=== PATIENT | female | born 1960 | race Two or more races ===

== ENCOUNTER 2024-06-01 14:03 | Inpatient (IN) | payer MEDICAID ==
[~2024-06-01] VITALS: Ht 165.1 cm; Wt 75.0 kg
--- NOTE | 2024-06-01 14:14 | ED.PDOC ---
General HPI Comments 63 year old female presents to the ED with chief complaint of flank pain. Patient reports she visited today due to experiencing left sided flank pain with associated mild fever, nausea, and dysuria since yesterday. Patient relays that she was sent to the ED for further evaluation. Patient states she currently has stage 3 chronic kidney failure. Patient denies any vomiting, diarrhea, abdominal pain, hematuria, chills, or dizziness. Time Seen by MD: 14:11 Reviewed notes: Nurses Notes, Medications, Allergies Allergies: Coded Allergies: Pineapple (Verified Allergy, Unknown, 06/01/24) Information Source: Patient Mode of Arrival: Ambulatory Severity: Moderate Inability to void: None Timing: Days Duration: Since onset Prehospital treatment: None Onset: Spontaneous Symptoms: Dysuria Location: (L)Flank Modifying factors: None associated signs and symptoms: Fever, Flank Pain, Dysuria Past Medical History PAST MEDICAL HISTORY: CKF (Stage 3), DM Surgical History: Hysterectomy PORCELAIN MIXER History: Denies all PORCELAIN MIXER Hx Family History Family History: Reviewed,noncontributory to illness Social History Smoker: Non-Smoker Alcohol: Denies ETOH Use Drugs: Denies Drug Use Lives In: Home Constitutional: reports: fever; denies: chills, diaphoresis, fatigue, malaise, sweats, weakness, others EENTM: denies: blurred vision, double vision, ear bleeding, ear discharge, ear drainage, ear pain, ear ringing, eye pain, eye redness, hearing loss, mouth pain, mouth swelling, nasal discharge, nose bleeding, nose congestion, nose pain, photophobia, tearing, throat pain, throat swelling, voice changes, others Respiratory: denies: cough, hemoptysis, orthopnea, SOB at rest, shortness of breath, SOB with excertion, stridor, wheezing, others Cardiovascular: denies: chest pain, dizzy spells, diaphoresis, Dyspnea on exertion, edema, irregular heart beat, left arm pain, lightheadedness, palpitations, PND, syncope, others Gastrointestinal: reports: nausea; denies: abdomen distended, abdominal pain, blood streaked bowels, constipated, diarrhea, dysphagia, difficulty swallowing, hematemesis, melena, poor appetite, poor fluid intake, rectal bleeding, rectal pain, vomiting, others Genitourinary: reports: dysuria, flank pain (Left); denies: abnormal vagina bleeding, burning, dyspareunia, frequency, hematuria, incontinence, pain, , vagina discharge, urgency, others Neurological: denies: dizziness, fainting, headache, left sided numbness, left sided weakness, numbness, paresthesia, pre-existing deficit, right sided numbness, right sided weakness, seizure, speech problems, tingling, tremors, weakness, others Musculoskeletal: denies: back pain, gout, joint pain, joint swelling, muscle pain, muscle stiffness, neck pain, others Integumetry: denies: bruises, change in color, change in hair/nails, dryness, laceration, lesions, lumps, rash, wounds, others Allergic/Immunocompromised: denies: Difficulty Healing, Frequent Infections, Hives, Itching, others Hematologic/Lymphatic: denies: anemia, blood clots, easy bleeding, easy bruising, swollen glands, others Endocrine: denies: excessive hunger, excessive sweating, excessive thirst, excessive urination, flushing, intolerance to cold, intolerance to heat, unexplained weight gain, unexplained weight loss, others Psychiatric: denies: anxiety, bipolar disorder, depression, hopeless, panic disorder, schizophrenia, sleepless, suicidal, others All Other Systems: Reviewed and Negative Physical Exam General Appearance: Moderate Distress, Normal HEENT: Normal ENT Inspection, PERRL/EOMI Neck: Full Range of Motion, Non-Tender, Normal, Normal Inspection Respiratory: Chest Non-Tender, Lungs Clear, No Accessory Muscle Use, No Respiratory Distress, Normal Breath Sounds Cardiovascular: No Edema, No JVD, No Murmur, No Gallop, Normal Peripheral Pulses, Regular Rate/Rhythm Breast Exam: Deferred Gastrointestinal: No Organomegaly, Non Tender, No Pulsatile Mass, Normal Bowel Sounds, Soft Genitalia: Deferred Pelvic: Deferred Rectal: Deferred Extremities: No calf tenderness, Normal capillary refill, Normal inspection, Normal range of motion, Non-tender, No pedal edema Musculoskeletal : Apperance: Normal Neurologic: Alert, crm consultant II-XII nml as Tested, No Motor Deficits, Normal Affect, Normal Mood, No Sensory Deficits Cerebellar Function: NOT DONE Reflexes: NOT DONE Skin: Dry, Normal Color, Warm Peripheral Pulses: 3+ Radial (R), 3+ Radial (L) Lymphatic: No Adenopathy Was a procedure done? Was a procedure done?: No Differential Diagnosis Kidney stone (Female): Musculoskeletal pain, Urinary obstruction, Urolithiasis X-Ray, Labs, Meds, VS Vital Signs Date Time Temp Pulse Resp B/P (MAP) Pulse Ox O2 Delivery O2 Flow Rate FiO2 06/01/24 15:13 93 18 158/77 (104) 98 06/01/24 15:13 93 18 98 Room Air 06/01/24 14:16 98.3 115 16 163/115 (131) 99 Lab Test 06/01/24 15:04 06/01/24 14:40 Range/Units White Blood Count 6.2 4.4-10.8 10^3/uL Red Blood Count 4.47 4.0-5.20 10^6/uL Hemoglobin 12.9 12.2-16.2 g/dL Hematocrit 38.3 36.0-46.0 % Mean Corpuscular Volume 85.9 80.0-100.0 fL Mean Corpuscular Hemoglobin 29.0 28.0-32.0 pg Mean Corpuscular Hemoglobin Concent 33.8 32.0-36.0 g/dL Red Cell Distribution Width 14.5 H 11.8-14.3 % Platelet Count 353 140-450 10^3/uL Mean Platelet Volume 8.0 6.9-10.8 fL Neutrophils (%) (Auto) 56.1 37.0-80.0 % Lymphocytes (%) (Auto) 33.8 10.0-50.0 % Monocytes (%) (Auto) 7.2 0.0-12.0 % Eosinophils (%) (Auto) 2.0 0.0-7.0 % Basophils (%) (Auto) 0.9 0.0-2.0 % Neutrophils # (Auto) 3.5 1.6-8.6 10 ^3/uL Lymphocytes # (Auto) 2.1 0.4-5.4 10 ^3/uL Monocytes # (Auto) 0.4 0-1.3 10 ^3/uL Eosinophils # (Auto) 0.1 0-0.8 10 ^3/uL Basophils # (Auto) 0.1 0-0.2 10 ^3/uL Nucleated Red Blood Cells 0.0 % Sodium Level 140 136-145 mmol/L Potassium Level 3.9 3.5-5.1 mmol/L Chloride Level 106 98-107 mmol/L Carbon Dioxide Level 28 20-31 mmol/L Anion Gap 6 5-15 Blood Urea Nitrogen 17 9-23 mg/dL Creatinine 1.09 H 0.550-1.02 mg/dL Glomerular Filtration Rate Calc 57 >90 mL/min BUN/Creatinine Ratio 15.6 10.0-20.0 Serum Glucose 135 H 74-106 mg/dL Calcium Level 9.9 8.7-10.4 mg/dL Urine Color Light-yellow Yellow Urine Clarity Clear Clear Urine pH 6.5 5.0-9.0 Urine Specific [place] 1.011 1.001-1.035 Urine Protein Negative Negative Urine Ketones Negative Negative Urine Blood Negative Negative /uL Urine Nitrite Negative Negative Urine Bilirubin Negative Negative Urine Urobilinogen Normal Negative mg/dL Urine Leukocyte Esterase Negative Negative /uL Urine RBC <1 0 - 4 /hpf Urine WBC <1 0 - 5 /hpf Urine Squamous Epithelial Cells Few <5 /hpf Urine Bacteria None seen None Seen /hpf Urine Glucose Normal Normal mg/dL Current Medications Medications (Trade) Dose Ordered Sig/Candis Route Start Time Stop Time Status Last Admin Sodium Chloride 1,000 ml @ 1,000 mls/hr Q1H ONCE IVB 06/01/24 14:45 06/01/24 15:44 DC 06/01/24 15:39 Ceftriaxone Sodium 50 ml @ 100 mls/hr ONCE ONCE IV 06/01/24 14:45 06/01/24 15:14 DC 06/01/24 15:39 Ondansetron HCl (Zofran) 4 mg ONCE ONCE IV 06/01/24 16:00 06/01/24 16:01 DC 06/01/24 16:26 Patient alert. Complaining of flank pain. Blood pressure elevated. Tachycardia. Had fever prior to going to the urgent care. Came from urgent care. Possible pyelonephritis. Establish intravenous access. Was given fluids. Was given Rocephin. Reviewed her history. Explained to the patient. Continue cardiac monitoring. UA shows small amount of bacteria. Unknown whether this urinary tract infection. Continues to have nausea. CT scan of the abdomen reviewed shows hydronephrosis. CT Abd/Pel: Findings: Evaluation of solid organs is limited due to lack of intravenous contrast use. Lung Bases: No acute or significant lung base finding. Normal heart size. No pleural or pericardial effusion. Liver: The liver is normal in size. No focal lesions. Gallbladder and biliary Tree: Surgically absent Spleen: Unremarkable Pancreas: The pancreas is grossly normal in appearance. Adrenal Glands: Unremarkable Kidneys: Mild bilateral hydronephrosis. No nephrolithiasis. No obstructing ureteral calculus. Bladder: Grossly unremarkable for degree of distention. Bowel: The stomach is grossly normal in appearance. Small bowel and colon are normal in caliber and distribution. Normal appendix is visualized in the right lower quadrant without findings of appendicitis. Ascites: Absent Lymphadenopathy: No mesenteric, retroperitoneal or periportal lymphadenopathy. Abdominal wall and Mesentery: Unremarkable. Vasculature: The visualized abdominal aorta is normal in size and caliber. Evaluation of abdominal and pelvic vessels is limited due to lack of intravenous contrast. Pelvic Organs: The uterus is surgically absent. Musculoskeletal: No aggressive focal bony lesions, acute fractures or dislocation. IMPRESSION: 1. Mild bilateral hydronephrosis. No obstructing calculus identified. Finding is nonspecific. Consider further evaluation with Lasix renal scan. Images Reviewed?: Images reviewed and evaluated by me Time of 1ST Reevaluation: 15:11 Reevaluation 1ST: Unchanged Patient Education/Counseling: Diagnosis, Treatment Family Education/Counseling: No Family Present Departure 1 Departure Time of Disposition: 14:41 Impression: Primary Impression: Hypertensive urgency Additional Impressions: Intractable nausea Hydronephrosis Qualified Codes: N13.30 - Unspecified hydronephrosis Disposition: ADMITTED INPATIENT Admit to: Med Surg Condition: Guarded Critical Care Note Critical Care Time?: Yes (45 min-critical care time only) Stability Stability form required: No Heart Score Heart Score: Heart Score Response (Comments) Value History N/A 0 EKG N/A 0 Age N/A 0 Risk Factors N/A 0 Troponin N/A 0 Total 0 I personally scribed for ELEANOR KELLY MD ([email or web address]) on 06/01/24 at 14:14. Electronically submitted by Chato Parks ([email or web address]). I personally scribed for ELEANOR KELLY MD ([email or web address]) on 06/01/24 at 17:23. Electronically submitted by Chato Parks ([email or web address]). ELEANOR KELLY MD Jun 01, 2024 14:14
[2024-06-01 14:42] LABS: Urine Bacteria None Seen /hpf (None Seen)
[2024-06-01 14:53] LABS: Urine Blood Negative /uL (Negative); Urine Clarity Clear (Clear); Urine Color Light-Yellow (Yellow); Urine Protein, UAD Negative (Negative); Urine Specific Gravity 1.011 (1.001-1.035); Urine Urobilinogen Normal (Negative); Urine WBC <1 /hpf (0 - 5); Urine pH 6.5 (5.0-9.0)
[2024-06-01 15:19] LABS: Basophils # (auto) 0.1 10 ^3/uL (0-0.2); Basophils % (auto) 0.9 % (0.0-2.0); Eosinophils # (auto) 0.1 10 ^3/uL (0-0.8); Hematocrit 38.3 % (36.0-46.0); Hemoglobin 12.9 g/dL (12.2-16.2); Lymphocytes # (auto) 2.1 10 ^3/uL (0.4-5.4); Lymphocytes % (auto) 33.8 % (10.0-50.0); Mean Corpuscular Hgb Conc. 33.8 g/dL (32.0-36.0); Mean Corpuscular Volume 85.9 fL (80.0-100.0); Monocytes # (auto) 0.4 10 ^3/uL (0-1.3); Monocytes % (auto) 7.2 % (0.0-12.0); Neutrophils # (auto) 3.5 10 ^3/uL (1.6-8.6); Neutrophils % (auto) 56.1 % (37.0-80.0); Platelet Count (auto) 353 10^3/uL (140-450); Red Blood Cells 4.47 10^6/uL (4.0-5.20); Red Cell Distribution Width 14.5 % (11.8-14.3); White Blood Cell 6.2 10^3/uL (4.4-10.8)
[2024-06-01 15:28] LABS: Chloride 106 mmol/L (98-107); Potassium 3.9 mmol/L (3.5-5.1); Sodium 140 mmol/L (136-145)
[2024-06-01 15:29] LABS: Anion Gap 6 (5-15); Calcium 9.9 mg/dL (8.7-10.4); Carbon Dioxide 28 mmol/L (20-31)
[2024-06-01 15:34] LABS: BUN/Creatinine Ratio 15.6 (10.0-20.0); Blood Urea Nitrogen 17 mg/dL (9-23); Glucose 135 mg/dL (74-106)
[2024-06-01] MEDS: cefTRIAXone 1GM/50ML D5W 50 ML IV ONE (15:39)
[2024-06-01] MEDS: SODIUM CHLORIDE 0.9% 1,000 ML IVB ONE (15:39)
[2024-06-01] MEDS: ONDANSETRON HCL 4 MG/2 ML VIAL IV ONE (16:26)
--- NOTE | 2024-06-01 16:51 | DVH ---
Exam: CT CT AB PEL WO CON-NO ORAL OR IV History: hydro Comparison Study: None Technique: Multidetector spiral CT of the abdomen and pelvis was performed from lung bases to pubic symphysis. Imaging was performed without IV contrast. Axial, coronal and sagittal multiplanar reform ats were obtained from the axial data set by the technologist. Radiation dose : Abdomen/Pelvis: CTDIvol 14 mGy, DLP 619.13 mGy*cm. Findings: Evaluation of solid organs is limited due to lack of intravenous contrast use. Lung Bases: No acute or significant lung base finding. Normal heart size. No pleural or pericardial effusion. Liver: The liver is normal in size. No focal lesions. Gallbladder and biliary Tree: Surgically absent Spleen: Unremarkable Pancreas: The pancreas is grossly normal in appearance. Adrenal Glands: Unremarkable Kidneys: Mild bilateral hydronephrosis. No nephrolithiasis. No obstructing ureteral calculus. Bladder: Grossly unremarkable for degree of distention. Bowel: The stomach is grossly normal in appearance. Small bowel and colon are normal in caliber and d istribution. Normal appendix is visualized in the right lower quadrant without findings of appendici tis. Ascites: Absent Lymphadenopathy: No mesenteric, retroperitoneal or periportal lymphadenopathy. Abdominal wall and Mesentery: Unremarkable. Vasculature: The visualized abdominal aorta is normal in size and caliber. Evaluation of abdominal a nd pelvic vessels is limited due to lack of intravenous contrast. Pelvic Organs: The uterus is surgically absent. Musculoskeletal: No aggressive focal bony lesions, acute fractures or dislocation. IMPRESSION: 1. Mild bilateral hydronephrosis. No obstructing calculus identified. Finding is nonspecific. Consi leah further evaluation with Lasix renal scan. Radiation optimization: All CT scans at this facility use at least one of these dose optimization xochilt hniques: Automated exposure control mA and/or kV adjustment per patient size (includes targeted exams where dose is matched to clinical indication) or iterative reconstruction. HS:Y
[2024-06-01] MEDS ORDERED: NITROGLYCERIN 0.4 MG SL TAB SL PRN (20:15)
[2024-06-01] MEDS ORDERED: MORPHINE SULFATE INJ 2 MG/ml SYRG IV PRN (20:15)
--- NOTE | 2024-06-01 21:29 | DVHHPRES ---
History of Present Illness Resident Creating Document: EDMUNDO WALKER RESIDENT History of Present Illness This is a 63-year-old female with past medical history of hypertension, hyperlipidemia, hypothyroidism, glaucoma, type 2 diabetes mellitus, stage 3 CKD ,recurrent UTI presented to the ED with a chief complaint of left flank pain and suprapubic pain for 1 day prior to this admission. According to the patient the left flank pain started yesterday was colicky in nature, 8/10 radiated to left back and also in the groin and associated with low-grade fever, nausea and dysuria with no aggravating and relieving factors. She went to the urgent care with these symptoms and they referred the patient to the ED for further evaluation and management of left flank pain. She had history of repeated UTI and last UTI was 2 months ago and following with Dr. June for chronic kidney disease. She has an upcoming appointment with Dr. Diaz urologist in June 18, 2024 for recurrent UTI. She denies chest pain, shortness of breath, dizziness, diaphoresis, vomiting, sick contact, recent traveling or any change in bowel movement. Past Medical History Hypertension, hyperlipidemia, hypothyroidism, type 2 diabetes mellitus, stage 3 CKD , recurrent UTI Past Surgical History Hysterectomy, right elbow surgery and carpal tunnel surgery of the right hand Family History Family history significant for glaucoma Smoke: No ALCOHOL: none Drugs: None Lives: with Family Review of Systems Constitutional: No: Fever, Chills, Sweats, Weakness, Malaise, Other Eyes: No: Pain, Vision change, Conjunctivae inflammation, Eyelid inflammation, Other, Redness ENT: No: Ear pain, Ear discharge, Nose pain, Nose discharge, Nose congestion, Mouth pain, Mouth swelling, Throat pain, Throat swelling, Other Respiratory: No: Cough, Dry, Shortness of breath, SOB with excertion, Wheezing, Hemoptysis, Pleuritic Pain, Sputum, Wheezing, Other Cardiovascular: No: Chest Pain, Palpitations, Orthopnea, Paroxysmal Noc. Dyspnea, Edema, Lt Headedness, Other Gastrointestinal: Nausea, Abdominal Pain; No: Vomiting, Diarrhea, Constipation, Melena, Hematochezia, Other Genitourinary: No Dysuria, No Frequency, No Incontinence, No Hematuria, No Retention, No Other Musculoskeletal: No: other, neck pain, shoulder pain, arm pain, back pain, hand pain, leg pain, foot pain Skin: No: Rash, Lesions, Jaundice, Bruising, Other Neurological: No: Weakness, Numbness, Incoordination, Change in speech, Confusion, Seizures, Other Allergies: Coded Allergies: Pineapple (Verified Allergy, Unknown, 06/01/24) Medications Current Medications Medications Dose Ordered Sig/Candis Route Start Time Stop Time Status Last Admin Dose Admin Sodium Chloride 10 ml Q8HR IV 06/01/24 22:00 Acetaminophen/ Hydrocodone Bitart 1 tab Q4HP PRN PO 06/01/24 20:15 Ondansetron HCl 4 mg Q4HP PRN IV 06/01/24 20:15 Nitroglycerin 0.4 mg Q5MINP PRN SL 06/01/24 20:15 Morphine Sulfate 2 mg Q30M PRN IV 06/01/24 20:15 Exam Vital Signs Vital Signs Date Time Temp Pulse Resp B/P (MAP) Pulse Ox O2 Delivery O2 Flow Rate FiO2 06/01/24 21:24 97.5 92 20 154/66 (95) 97 97.5 06/01/24 15:13 Room Air Exam Physical examination: General Appearance: Alert, Oriented X3, Cooperative, No acute distress HEENT: Atraumatic, PERRLA, EOMI, Mucous membrane moist/pink Respiratory: Clear to auscultation, Normal air movement Cardiovascular: Regular rate, Normal S1, Normal S2, No murmurs, no chest wall tenderness Abdominal: Normal bowel sounds, Soft, tenderness in the suprapubic region, CVA tenderness absent, No hepatospenomegaly, No masses Extremities: No clubbing, No cyanosis, No edema, Normal pulses, No tenderness/swelling Skin: No rashes, No breakdown, No significant lesion Neuro: Normal gait, Normal speech, Strength at 5/5 X4 ext, Normal tone, Sensation intact, grossly intact cranial nerves. Psych/Mental Status: Mental status NL, Mood NL Labs/Xrays Labs Test 06/01/24 15:04 06/01/24 14:40 Range/Units White Blood Count 6.2 4.4-10.8 10^3/uL Red Blood Count 4.47 4.0-5.20 10^6/uL Hemoglobin 12.9 12.2-16.2 g/dL Hematocrit 38.3 36.0-46.0 % Mean Corpuscular Volume 85.9 80.0-100.0 fL Mean Corpuscular Hemoglobin 29.0 28.0-32.0 pg Mean Corpuscular Hemoglobin Concent 33.8 32.0-36.0 g/dL Red Cell Distribution Width 14.5 H 11.8-14.3 % Platelet Count 353 140-450 10^3/uL Mean Platelet Volume 8.0 6.9-10.8 fL Neutrophils (%) (Auto) 56.1 37.0-80.0 % Lymphocytes (%) (Auto) 33.8 10.0-50.0 % Monocytes (%) (Auto) 7.2 0.0-12.0 % Eosinophils (%) (Auto) 2.0 0.0-7.0 % Basophils (%) (Auto) 0.9 0.0-2.0 % Neutrophils # (Auto) 3.5 1.6-8.6 10 ^3/uL Lymphocytes # (Auto) 2.1 0.4-5.4 10 ^3/uL Monocytes # (Auto) 0.4 0-1.3 10 ^3/uL Eosinophils # (Auto) 0.1 0-0.8 10 ^3/uL Basophils # (Auto) 0.1 0-0.2 10 ^3/uL Nucleated Red Blood Cells 0.0 % Sodium Level 140 136-145 mmol/L Potassium Level 3.9 3.5-5.1 mmol/L Chloride Level 106 98-107 mmol/L Carbon Dioxide Level 28 20-31 mmol/L Anion Gap 6 5-15 Blood Urea Nitrogen 17 9-23 mg/dL Creatinine 1.09 H 0.550-1.02 mg/dL Glomerular Filtration Rate Calc 57 >90 mL/min BUN/Creatinine Ratio 15.6 10.0-20.0 Serum Glucose 135 H 74-106 mg/dL Calcium Level 9.9 8.7-10.4 mg/dL Urine Color Light-yellow Yellow Urine Clarity Clear Clear Urine pH 6.5 5.0-9.0 Urine Specific [place] 1.011 1.001-1.035 Urine Protein Negative Negative Urine Ketones Negative Negative Urine Blood Negative Negative /uL Urine Nitrite Negative Negative Urine Bilirubin Negative Negative Urine Urobilinogen Normal Negative mg/dL Urine Leukocyte Esterase Negative Negative /uL Urine RBC <1 0 - 4 /hpf Urine WBC <1 0 - 5 /hpf Urine Squamous Epithelial Cells Few <5 /hpf Urine Bacteria None seen None Seen /hpf Urine Glucose Normal Normal mg/dL Assessment/Plan Assessment/Plan Assessment and plan: # Left flank pain, rule out renal stone - CT abdomen pelvis revealed mild bilateral hydronephrosis without any obstructing calculus and recommended renal Lasix scan. - IV morphine 2 mg q.4 p.r.n. - IV ondansetron 4 mg q.4 p.r.n. - Consulted Urology. # Recurrent UTI - UA is not consistent with a UTI - Ordered urine bacterial culture # Stage 3 CKD - Strict I&O - Avoid nephrotoxic medication - Consulted Nephrology # Hypertensive heart disease - Losartan 25 mg p.o. daily - IV labetalol 5 mg q.2h p.r.n. # Hypothyroidism - Levothyroxine 137 mcg p.o. daily # Type 2 diabetes mellitus, HbA1C 6.9 - Mild sliding scale of insulin Goal of care discussed with the patient for more than 20 minutes full code Plan of treatment discussed with Dr. Pisano Plan discussed with: Patient, Other My Orders Orders - EDMUNDO WALKER RESIDENT Procedure Category Date Status Time Admit ADMIT 06/01/24 Transmitted 20:15 Code Status CODE 06/01/24 Transmitted 20:15 Sodium Chloride Lock PHA 06/01/24 In Process (Saline Lock Ns) 22:00 Hydrocodone-Acet PHA 06/01/24 In Process 5/325mg Tab ([place] 20:15 Ondansetron Hcl PHA 06/01/24 In Process (Zofran) 20:15 Complete Blood Count LAB 06/02/24 Verified 04:00 Comprehensive LAB 06/02/24 Verified Metabolic Panel 04:00 Nitroglycerin PHA 06/01/24 In Process Sublingual (Ntrostat 20:15 Morphine Sulfate PHA 06/01/24 In Process Injection 20:15 Oxygen By Nasal RT 06/01/24 Transmitted Cannula 20:15 Stat Ekg For Chest KEITH 06/01/24 In Process Pain 20:15 Notify Of Changes KEITH 06/01/24 In Process From Base 20:15 Economics Teacher For KEITH 06/01/24 In Process 24 Hours 20:15 Emergency Dysrhythmia KEITH 06/01/24 In Process Protocol 20:15 Rhythm Strips Once KEITH 06/01/24 In Process Every Shift 20:15 Consistent DIET 06/02/24 Transmitted Carb(Ccho)Diabetes Breakfast Date of Service: Jun 01, 2024 Billing Provider: MAKI PISANO MD Common Visit Codes: 90157-RYRSAVB INP/OBS CARE (HIGH) Secondary Visit Codes: 11755-[id number] CARE PLAN 30 MINUTES EDMUNDO WALKER RESIDENT Jun 01, 2024 21:29 MAKI PISANO MD Jun 02, 2024 12:53
[2024-06-01] MEDS: SODIUM CHLOR 0.9% PF (SALINE LOCK) 10ML VIAL/SYR IV SCH (21:58)
[2024-06-01] MEDS: SODIUM CHLORIDE 0.9% 1,000 ML IV ONE (22:22)
[2024-06-01] MEDS: ONDANSETRON HCL 4 MG/2 ML VIAL IV PRN (22:31)
[2024-06-01] MEDS: HYDROcodone-ACET 5/325MG TAB PO PRN (22:33)
[2024-06-02] MEDS ORDERED: DEXTROSE (50%) 50ML SYRG IV PRN
[2024-06-02] MEDS ORDERED: LABETALOL HCL 20 MG/4 ML VL IV PRN (02:00)
[2024-06-02 04:58] VITALS: BP 148/47; PULSE 76; RESP 18; TEMP 97.9; O2SAT 94
[2024-06-02 05:00] VITALS: BP 155/70; PULSE 71; RESP 18; TEMP 98.7; O2SAT 99
[2024-06-02] MEDS: LEVOTHYROXINE SODIUM 25 MCG TAB PO SCH (05:56)
[2024-06-02] MEDS: InsuLIN REG 1unit/0.01ml Soln (100units/ml) SC SCH (06:31)
[2024-06-02] MEDS: ACCU-CHEK COMFORT CURVE STRIP VI SCH (06:31)
[2024-06-02 07:03] LABS: Basophils # (auto) 0.1 10 ^3/uL (0-0.2); Basophils % (auto) 0.9 % (0.0-2.0); Eosinophils # (auto) 0.2 10 ^3/uL (0-0.8); Eosinophils % (auto) 3.1 % (0.0-7.0); Hematocrit 36.1 % (36.0-46.0); Hemoglobin 11.8 g/dL (12.2-16.2); Lymphocytes # (auto) 2.4 10 ^3/uL (0.4-5.4); Lymphocytes % (auto) 34.3 % (10.0-50.0); Mean Corpuscular Hemoglobin 28.8 pg (28.0-32.0); Mean Corpuscular Hgb Conc. 32.8 g/dL (32.0-36.0); Mean Corpuscular Volume 87.9 fL (80.0-100.0); Monocytes # (auto) 0.4 10 ^3/uL (0-1.3); Monocytes % (auto) 6.4 % (0.0-12.0); Neutrophils # (auto) 3.8 10 ^3/uL (1.6-8.6); Neutrophils % (auto) 55.3 % (37.0-80.0); Platelet Count (auto) 315 10^3/uL (140-450); Red Cell Distribution Width 14.5 % (11.8-14.3); White Blood Cell 6.9 10^3/uL (4.4-10.8)
[2024-06-02] MEDS ORDERED: LEVO137T3 PO (07:04)
[2024-06-02] MEDS ORDERED: CETI10TA2 PO (07:04)
[2024-06-02] MEDS ORDERED: DORZ2SOL18 EACHEYE (07:04)
[2024-06-02] MEDS ORDERED: PREG75CA PO (07:04)
[2024-06-02] MEDS ORDERED: HYDR-3682 PO (07:04)
[2024-06-02] MEDS ORDERED: LATA0.008 OP (07:04)
[2024-06-02] MEDS ORDERED: CHOL500033 PO (07:04)
[2024-06-02] MEDS ORDERED: LIFI5DRO2 OP (07:04)
[2024-06-02] MEDS ORDERED: LOSA-533 PO (07:04)
[2024-06-02] MEDS ORDERED: FENO145T27 OR (07:04)
[2024-06-02] MEDS ORDERED: ATOR20TA50 PO (07:04)
[2024-06-02 07:15] LABS: Alanine Aminotransferase 17 U/L (7-40); Albumin 4.1 g/dL (3.2-4.8); Alkaline Phosphatase 93 U/L (46-116); Anion Gap 9 (5-15); Aspartate Aminotransferase 13 U/L (13-40); BUN/Creatinine Ratio 13.2 (10.0-20.0); Blood Urea Nitrogen 15 mg/dL (9-23); Calcium 9.7 mg/dL (8.7-10.4); Carbon Dioxide 26 mmol/L (20-31); Chloride 108 mmol/L (98-107); Glucose 114 mg/dL (74-106); Potassium 3.8 mmol/L (3.5-5.1); Sodium 143 mmol/L (136-145)
[2024-06-02 07:16] LABS: Bilirubin, Total 0.5 mg/dL (0.2-1.0)
[2024-06-02 08:00] VITALS: BP 132/60; PULSE 81; RESP 14; TEMP 97.4; O2SAT 98
--- NOTE | 2024-06-02 10:00 | DVH ---
INDICATION: Hydronephrosis. TECHNIQUE: Multiple real-time sonographic images of the kidneys and bladder were obtained. COMPARISON: None FINDINGS: RIGHT kidney measures 9.2 cm in length. Trace right hydronephrosis. LEFT kidney measures 9.9 cm in length. No hydronephrosis. No large intraluminal masses are seen in the bladder. IMPRESSION: Trace right renal pelvic fullness.
[2024-06-02] MEDS: LOSARTAN POTASSIUM 25 MG TAB PO SCH (10:04)
[2024-06-02 10:34] LABS: Urine Bacteria None Seen /hpf (None Seen)
[2024-06-02 10:38] LABS: Urine Blood Negative /uL (Negative); Urine Clarity Clear (Clear); Urine Color Colorless (Yellow); Urine Protein, UAD Negative (Negative); Urine Specific Gravity 1.006 (1.001-1.035); Urine Urobilinogen Normal (Negative); Urine WBC <1 /hpf (0 - 5); Urine pH 6.5 (5.0-9.0)
[2024-06-02 12:00] VITALS: BP 131/55; PULSE 71; RESP 14; TEMP 97.3; O2SAT 96
[2024-06-02] MEDS ORDERED: CIPR500T4 PO (13:12)
--- NOTE | 2024-06-02 13:22 | DVHDSRES ---
Discharge Summary Date of Admission Resident Creating Document: ARETHA BURNS RESIDENT Jun 01, 2024 at 20:15 Date of Discharge: Jun 02, 2024 Admitting Diagnosis Acute left flank pain Wounds: No wounds present at this time. Labs/Diagnostic Data: Laboratory Results Test 06/02/24 11:27 06/02/24 10:16 06/02/24 06:30 06/01/24 15:04 POC Glucose 134 mg/dl (70-106) Urine Color Colorless (Yellow) Urine Clarity Clear (Clear) Urine pH 6.5 (5.0-9.0) Urine Specific [place] 1.006 (1.001-1.035) Urine Protein Negative (Negative) Urine Ketones Negative (Negative) Urine Blood Negative /uL (Negative) Urine Nitrite Negative (Negative) Urine Bilirubin Negative (Negative) Urine Urobilinogen Normal mg/dL (Negative) Urine Leukocyte Esterase Negative /uL (Negative) Urine RBC 1 /hpf (0 - 4) Urine WBC <1 /hpf (0 - 5) Urine Squamous Epithelial Cells Few /hpf (<5) Urine Bacteria None seen /hpf (None Seen) Urine Glucose Normal mg/dL (Normal) White Blood Count 6.9 10^3/uL (4.4-10.8) Red Blood Count 4.10 10^6/uL (4.0-5.20) Hemoglobin 11.8 g/dL (12.2-16.2) Hematocrit 36.1 % (36.0-46.0) Mean Corpuscular Volume 87.9 fL (80.0-100.0) Mean Corpuscular Hemoglobin 28.8 pg (28.0-32.0) Mean Corpuscular Hemoglobin Concent 32.8 g/dL (32.0-36.0) Red Cell Distribution Width 14.5 % (11.8-14.3) Platelet Count 315 10^3/uL (140-450) Mean Platelet Volume 8.1 fL (6.9-10.8) Neutrophils (%) (Auto) 55.3 % (37.0-80.0) Lymphocytes (%) (Auto) 34.3 % (10.0-50.0) Monocytes (%) (Auto) 6.4 % (0.0-12.0) Eosinophils (%) (Auto) 3.1 % (0.0-7.0) Basophils (%) (Auto) 0.9 % (0.0-2.0) Neutrophils # (Auto) 3.8 10 ^3/uL (1.6-8.6) Lymphocytes # (Auto) 2.4 10 ^3/uL (0.4-5.4) Monocytes # (Auto) 0.4 10 ^3/uL (0-1.3) Eosinophils # (Auto) 0.2 10 ^3/uL (0-0.8) Basophils # (Auto) 0.1 10 ^3/uL (0-0.2) Nucleated Red Blood Cells 0.0 % Sodium Level 143 mmol/L (136-145) Potassium Level 3.8 mmol/L (3.5-5.1) Chloride Level 108 mmol/L (98-107) Carbon Dioxide Level 26 mmol/L (20-31) Anion Gap 9 (5-15) Blood Urea Nitrogen 15 mg/dL (9-23) Creatinine 1.14 mg/dL (0.550-1.02) Glomerular Filtration Rate Calc 54 mL/min (>90) BUN/Creatinine Ratio 13.2 (10.0-20.0) Serum Glucose 114 mg/dL (74-106) Calcium Level 9.7 mg/dL (8.7-10.4) Total Bilirubin 0.5 mg/dL (0.2-1.0) Aspartate Amino Transferase (AST) 13 U/L (13-40) Alanine Aminotransferase (ALT) 17 U/L (7-40) Alkaline Phosphatase 93 U/L (46-116) Total Protein 7.0 g/dL (5.7-8.2) Albumin 4.1 g/dL (3.2-4.8) Hemoglobin A1c 6.9 % A1C (<5.7) B-Type Natriuretic Peptide 3.92 pg/mL (0-100) Thyroid Stimulating Hormone (TSH) 0.15 uIU/mL (0.55-4.78) Other Laboratory Tests 06/02/24 06:30 Brief Hx & Hospital Course: This is a 63-year-old female with past medical history of hypertension, hyperlipidemia, hypothyroidism, glaucoma, type 2 diabetes mellitus, stage 3 CKD ,recurrent UTI presented to the ED with a chief complaint of left flank pain and suprapubic pain for 1 day prior to this admission. According to the patient the left flank pain started yesterday was colicky in nature, 8/10 radiated to left back and also in the groin and associated with low-grade fever, nausea and dysuria with no aggravating and relieving factors. Initially, she went to the urgent care with these symptoms and they referred the patient to the ED for further evaluation and management of left flank pain. She had history of repeated UTI and last UTI was 2 months ago and following with Dr. June for chronic kidney disease. She has an upcoming appointment with Dr. Diaz urologist in June 18, 2024 for recurrent UTI. She denies chest pain, shortness of breath, dizziness, diaphoresis, vomiting, or any other additional symptoms. Initial labs CBC, CMP were grossly unremarkable. Urinalysis came back negative twice. Due to suspicion of UTI based on history and symptoms we will also perform a urinary culture which came back negative as well. Initial CT of the abdomen showed mild bilateral hydronephrosis but no obstructing calculi or any acute intra-abdominal process. A kidney ultrasound showed Trace right renal pelvic fullness, but no evidence of bilateral hydronephrosis at this time. We will discuss possible causes with the patient and we recommended to follow up closely with Urology as an outpatient. Patient reiterated that she had an upcoming appointment on June [id number] with Dr. Diaz. We will discharge the patient home on ciprofloxacin 500 mg b.i.d. for seven days. Patient agrees and understands the plan. ROS Constitutional: Denies weight loss, fever and chills. HEENT: Denies changes in vision and hearing. Respiratory: Denies shortness of breath and cough Cardiovascular: Denies chest discomfort or palpitations GI: Denies abdominal pain, nausea, vomiting and diarrhea. : Denies dysuria and urinary frequency. Musculoskeletal: Denies myalgias and joint pain Skin: Denies rash and pruritus. Neurological: Denies dizziness, headache, vision or hearing problems Physical Examination General: Patient alert and oriented in person, place and time. Patient following commands. HEENT: Normocephalic, atraumatic, moist mucous membranes Respiratory/pulmonary: Clear lungs bilaterally, no associated crackles or wheezes. Cardiovascular: Normal heart sounds S1 and S2 with no associated murmurs Abdomen: Abdomen nondistended, there is very mild discomfort at the lower abd that has improved. no palpable masses. Extremities: There is no peripheral edema present at the lower extremities. Peripheral Pulses: 3+ Radial (R). 3+ Radial (L). 3+ Dorsalis pedis (R). 3+ Dorsalis pedis(L) Skin: No rashes or pruritus, there is no sacral edema present at this time. Neurological: Intact cranial nerves with no focal neurologic deficits Operations or Procedures Exam: CT CT AB PEL WO CON-NO ORAL OR IV History: hydro Comparison Study: None Technique: Multidetector spiral CT of the abdomen and pelvis was performed from lung bases to pubic symphysis. Imaging was performed without IV contrast. Axial, coronal and sagittal multiplanar reformats were obtained from the axial data set by the technologist. Radiation dose : Abdomen/Pelvis: CTDIvol 14 mGy, DLP 619.13 mGy*cm. Findings: Evaluation of solid organs is limited due to lack of intravenous contrast use. Lung Bases: No acute or significant lung base finding. Normal heart size. No pleural or pericardial effusion. Liver: The liver is normal in size. No focal lesions. Gallbladder and biliary Tree: Surgically absent Spleen: Unremarkable Pancreas: The pancreas is grossly normal in appearance. Adrenal Glands: Unremarkable Kidneys: Mild bilateral hydronephrosis. No nephrolithiasis. No obstructing ureteral calculus. Bladder: Grossly unremarkable for degree of distention. Bowel: The stomach is grossly normal in appearance. Small bowel and colon are normal in caliber and distribution. Normal appendix is visualized in the right lower quadrant without findings of appendicitis. Ascites: Absent Lymphadenopathy: No mesenteric, retroperitoneal or periportal lymphadenopathy. Abdominal wall and Mesentery: Unremarkable. Vasculature: The visualized abdominal aorta is normal in size and caliber. Evaluation of abdominal and pelvic vessels is limited due to lack of intravenous contrast. Pelvic Organs: The uterus is surgically absent. Musculoskeletal: No aggressive focal bony lesions, acute fractures or dislocation. IMPRESSION: 1. Mild bilateral hydronephrosis. No obstructing calculus identified. Finding is nonspecific. Consider further evaluation with Lasix renal scan. INDICATION: Hydronephrosis. TECHNIQUE: Multiple real-time sonographic images of the kidneys and bladder were obtained. COMPARISON: None FINDINGS: RIGHT kidney measures 9.2 cm in length. Trace right hydronephrosis. LEFT kidney measures 9.9 cm in length. No hydronephrosis. No large intraluminal masses are seen in the bladder. IMPRESSION: Trace right renal pelvic fullness. Condition at Discharge: Good Final Diagnosis/Problems List Acute Left flank pain, likely due to UTI ruled out renal stone Recurrent UTI CKD Stage 3a Hypertensive heart disease Hypothyroidism Type 2 diabetes mellitus Discharge Disposition: Home Discharge Instruct/Medications Diet: Regular Activity: No Restrictions, As Tolerated Follow Up/Referral: F/U with her PCP in 1 week F/U with urology on june 18 (Dr. Diaz) Medications: Ciprofloxacin 500mg BID for 7 days Discharge Statement: "Patient was advised to return to the ER or call 911 if any headaches, dizziness, shortness of breath, chest pain, abdominal pain, bleeding, fevers, or worsening of medical condition. Patient was counseled about treatment plan, medications, possible side effects, patientverbalized understanding. All questions were answered to the best of my ability. This discharge took greater then 30 minutes in planning, reviewing documentation, counseling the patient, and discussing with other team members." ASSESSMENT ASSESSMENT Assessment Acute Left flank pain, likely due to UTI ruled out renal stone Recurrent UTI CKD Stage 3a Hypertensive heart disease Hypothyroidism Type 2 diabetes mellitus ARETHA BURNS RESIDENT Jun 02, 2024 13:22
[2024-06-02 15:19] VITALS: BP 131/55; PULSE 71; RESP 14; TEMP 97.3; O2SAT 96
[2024-06-02 16:00] VITALS: BP 139/64; PULSE 81; RESP 14; TEMP 97.4; O2SAT 93
[2024-06-02] MEDS ORDERED: ONDA-155 PO (17:03)
[2024-06-02] MEDS ORDERED: ATORVASTATIN 20 MG TAB PO SCH (22:00)
[2024-06-04 08:36] LABS: Hepatitis B Surface Antigen Negative (Negative)
[2024-06-04 08:57] LABS: Hepatitis C Antibody Negative (Negative)
== END 2024-06-02 17:35 | disposition home or self-care (01) | DRG 463 ==
LOC: ER 14:03 → OVERFLOW 20:15 → WEST WING 06-02 04:10
PROVIDERS: ATTEND Emergency Medicine
DX: N30.00 Acute cystitis without hematuria (principal); E11.22 Type 2 diabetes mellitus with diabetic chronic kidney disease; E03.9 Hypothyroidism, unspecified; I12.9 Hypertensive chronic kidney disease with stage 1 through stage 4 chronic kidney disease, or unspecified chronic kidney disease; N18.31 Chronic kidney disease, stage 3a; I16.0 Hypertensive urgency; E78.5 Hyperlipidemia, unspecified; Z90.710 Acquired absence of both cervix and uterus; Z79.899 Other long term (current) drug therapy; Z79.4 Long term (current) use of insulin
CPT/HCPCS: 36415; 74176; 76775; 80048; 80053; 81001; 82306; 82607; 82962; 83036; 83880; 84443; 85025; 86803; 87086; 87340; 96365; 96375; 99291; G0378; J1815; J2405